=== PATIENT | male | born 1985 | race Caucasian/White ===

== ENCOUNTER 2016-07-17 15:06 | Emergency (ER) | payer BC, OTHER | END 2016-07-17 16:00 | disposition home or self-care (01) | LOC: ER 15:06 | PROC: 3E0234Z Introduction of Serum, Toxoid and Vaccine into Muscle, Percutaneous Approach (ICD-10-PCS; principal; 2016-07-17) | DX: S61.411A Laceration without foreign body of right hand, initial encounter (principal); W26.0XXA Contact with knife, initial encounter; Y92.89 Other specified places as the place of occurrence of the external cause; Z23 Encounter for immunization | CPT/HCPCS: 12001; 73130; 90471; 90715; 99070; 99283-25 ==